=== PATIENT | male | born 1990 | race Caucasian/White ===

== ENCOUNTER 2024-12-08 02:34 | Day surgery (SDC) | payer OTHER ==
[~2024-12-08] VITALS: Ht 188 cm; Wt 93.8 kg
[2024-12-08] VITALS (234 sets, daily range): BP systolic 86–140; BP diastolic 35–92
[~2024-12-08 02:34] MED LIST: SODIUM CHLORIDE 0.9% 1,000 ML IV PRN
[2024-12-08] MEDS ORDERED: cloNIDine HCL 0.1 MG/TAB PO PRN ×2 (07:30→08:10)
[2024-12-08] MEDS ORDERED: SCOPOLAMINE 1.5 MG DIS TD PRN (07:30)
[2024-12-08] MEDS ORDERED: PANTOPRAZOLE SODIUM Sesquihydr 40 MG/TAB PO PRN (07:30)
[2024-12-08] MEDS ORDERED: diazePAM 5 MG/TAB PO PRN ×2 (07:30→08:30)
[2024-12-08] MEDS ORDERED: ALBUTEROL SULFATE 2.5 MG VIAL IN PRN (07:30)
[2024-12-08] MEDS ORDERED: LACTATED RINGER'S 1,000 ML IV PRN ×2 (07:30→08:25)
[2024-12-08] MEDS ORDERED: CYANOCOBALAMIN 500 MCG/TAB ( B12) PO PRN (07:30)
[2024-12-08] MEDS ORDERED: FAMOTIDINE 20 MG/TAB PO PRN (07:30)
[2024-12-08] MEDS ORDERED: ASCORBIC ACID 4,000 MG in SODIUM CHLORIDE 0.9% 1,000 ML IV SCH (08:00)
[2024-12-08] MEDS ORDERED: diazePAM 5 MG/TAB VT PRN (08:25)
[2024-12-08] MEDS ORDERED: ONDANSETRON HCl 4 MG/2 ML SDV IV PRN ×3 (08:25→19:00)
[2024-12-08] MEDS ORDERED: cloNIDine HYDROCHLORIDE 100 MCG/ML 10 ML INJ IV PRN (08:25)
[2024-12-08] MEDS ORDERED: SUCCINYLCHOLINE CHLORIDE 20 MG/ML 10ML VIAL IV PRN (08:25)
[2024-12-08] MEDS ORDERED: OCTREOTIDE ACETATE 100 MCG/VIAL SDV SC PRN (08:25)
[2024-12-08] MEDS ORDERED: MIDAZOLAM HCL 2 MG/2 ML VIAL IV PRN ×3 (08:25→15:15)
[2024-12-08] MEDS ORDERED: ROCURONIUM BROMIDE 10 MG/ML 5 ML VIAL IV PRN (08:25)
[2024-12-08] MEDS ORDERED: PROPOFOL 100 ML IV PRN (08:25)
[2024-12-08] MEDS ORDERED: STERILE WATER FOR IRRIGATION 1,000 ML BTL IR PRN (08:25)
[2024-12-08] MEDS ORDERED: PHENYLEPHRINE HCL 10 MG in DEXTROSE 5% 250 ML IV SCH (08:25)
[2024-12-08] MEDS ORDERED: LIDOCAINE HCL 1% (10MG/ML) 100 MG/10 ML MDV VT PRN ×2 (08:25)
[2024-12-08] MEDS ORDERED: NALTREXONE HCL 50 MG/TAB VT PRN (08:25)
[2024-12-08] MEDS ORDERED: MAGNESIUM SULFATE HEPTAHYDRATE 100 ML IV PRN (08:25)
[2024-12-08] MEDS ORDERED: cloNIDine HCL 0.1 MG/TAB VT PRN (08:25)
[2024-12-08] MEDS ORDERED: LIDOCAINE HCL 1% (10MG/ML) 100 MG/10 ML MDV IV PRN (08:25)
[2024-12-08] MEDS ORDERED: DiphenhydrAMINE HCL 50 MG/ML SDV IV PRN (08:25)
[2024-12-08] MEDS ORDERED: PROPOFOL 10 MG/ML 100ML VIAL IV PRN (08:25)
[2024-12-08] MEDS ORDERED: THIAMINE HCL 100 MG/ML 2ML VIAL IV PRN (08:25)
[2024-12-08] MEDS ORDERED: diazePAM 5 MG/TAB PO SCH (08:30)
[2024-12-08] MEDS ORDERED: SODIUM CHLORIDE 0.9% 1,000 ML IV PRN ×2 (08:30→15:15)
[2024-12-08] MEDS ORDERED: GABAPENTIN300 M2 PO (08:50)
[2024-12-08 08:51] LABS: BASO% 0.6 % (0-3); EOS% 5.4 % (0-8); HEMATOCRIT 43.7 % (39.0-50.0); HEMOGLOBIN 13.7 g/dl (14.0-18.0); LYMPH% 19.6 % (15-41); MEAN CELL VOLUME 86.2 fL CALC (80.0-100.0); MEAN CORPUSCULAR HGB CONC 31.4 g/dL CAL (32.0-36.0); MONO% 7.6 % (2-13); NEUT# 5.94 thou/uL (1.82-7.42); NEUT% 66.8 % (42-76); RED BLOOD COUNT 5.07 mill/uL (4.70-6.10); RED CELL DISTRI WIDTH 15.1 % (11.5-15.5)
[2024-12-08 09:02] LABS: ALBUMIN 4.5 g/dL (3.2-5.0); BILIRUBIN, TOTAL 0.6 mg/dL (0.2-1.3); CREATININE 1.1 mg/dL (0.7-1.3); POTASSIUM 3.4 mmol/l (3.5-5.1); TOTAL PROTEIN 8.2 g/dL (6.3-8.2)
[2024-12-08] MEDS ORDERED: POTASSIUM CHLORIDE 10 MEQ/50 ML BAG IV PRN (10:20)
[2024-12-08] MEDS ORDERED: DEXMEDETOMIDINE HCL IN SODIUM 100 ML IV SCH (11:40)
[2024-12-08] MEDS ORDERED: KLONOPIN2 MG PO (13:42)
[2024-12-08] MEDS ORDERED: CLONIDINE0.1 MG PO (13:42)
[2024-12-08] MEDS ORDERED: NALTREXONE50 MG PO (13:42)
[2024-12-08] MEDS ORDERED: clonazePAM 1 MG/TAB PO PRN (15:15)
[2024-12-08] MEDS ORDERED: KETOROLAC TROMETHAMINE 30 MG/ML SDV IV PRN (19:00)
[2024-12-08] MEDS ORDERED: PROMETHAZINE HCL 12.5 MG in SODIUM CHLORIDE 0.9% 50 ML IV PRN (19:00)
[2024-12-08] MEDS ORDERED: ACETAMINOPHEN 500 MG TAB PO PRN (19:00)
[2024-12-08] MEDS ORDERED: HALOPERIDOL LACTATE 5 MG/ML SDV IV PRN ×2 (19:00→20:55)
[2024-12-08] MEDS ORDERED: ACETAMINOPHEN 1,000 MG/100 ML VIAL IV PRN (19:00)
[2024-12-08] MEDS ORDERED: PROMETHAZINE HCL 25 MG in SODIUM CHLORIDE 0.9% 50 ML IV PRN (19:00)
[2024-12-08] MEDS ORDERED: PATIENT' OWN MED CONTROLLED 1 EA DOSE IV PRN (21:00)
[2024-12-08] MEDS ORDERED: cloNIDine HCL 0.1 MG/TAB PO SCH (23:00)
[2024-12-09 04:00] VITALS: BP 149/73
[2024-12-09] MEDS ORDERED: clonazePAM 1 MG/TAB PO PRN ×2 (04:00→08:00)
[2024-12-09] MEDS ORDERED: NALTREXONE HCL 50 MG/TAB PO SCH (04:00)
[2024-12-09] MEDS ORDERED: cloNIDine HCL 0.1 MG/TAB PO PRN (04:00)
[2024-12-09 04:12] VITALS: BP 149/73
[2024-12-09 06:05] LABS: ALBUMIN 4.3 g/dL (3.2-5.0); BILIRUBIN, TOTAL 0.7 mg/dL (0.2-1.3); CREATININE 0.9 mg/dL (0.7-1.3); MAGNESIUM 2.2 mg/dL (1.6-2.3); POTASSIUM 3.9 mmol/l (3.5-5.1); TOTAL PROTEIN 7.7 g/dL (6.3-8.2)
[2024-12-09 06:07] LABS: BASO% 0.2 % (0-3); HEMATOCRIT 46.9 % (39.0-50.0); IMMATURE GRANULOCYTES 0.3 % (0.0-5.0); LYMPH% 5.9 % (15-41); MEAN CELL VOLUME 85.9 fL CALC (80.0-100.0); MEAN CORPUSCULAR HGB 27.5 pG CALC (26.0-32.0); NEUT# 11.23 thou/uL (1.82-7.42); NEUT% 88.6 % (42-76); RED BLOOD COUNT 5.46 mill/uL (4.70-6.10); RED CELL DISTRI WIDTH 15.5 % (11.5-15.5)
[2024-12-09] MEDS ORDERED: PANTOPRAZOLE SODIUM Sesquihydr 40 MG/TAB PO SCH (08:00)
[2024-12-09] MEDS ORDERED: cloNIDine HCL 0.1 MG/TAB PO SCH ×2 (08:00→11:30)
[2024-12-09] MEDS ORDERED: ACETAMINOPHEN 325 MG/TAB PO SCH (08:00)
[2024-12-09] MEDS ORDERED: GABAPENTIN 300 MG/CAP PO SCH (08:30)
[2024-12-09] MEDS ORDERED: Cholecalciferol 2,000 UNIT/TAB PO PRN (09:00)
[2024-12-09] MEDS ORDERED: MAGNESIUM OXIDE 400 MG/TAB PO PRN (09:00)
[2024-12-09] MEDS ORDERED: ACETAMINOPHEN 500 MG TAB PO PRN (09:00)
[2024-12-09 19:19] VITALS: BP 143/76
[2024-12-09 22:37] VITALS: BP 136/80
[2024-12-10 04:01] VITALS: BP 155/86
[2024-12-10 04:47] LABS: BASO% 0.2 % (0-3); EOS% 0.1 % (0-8); HEMATOCRIT 45.4 % (39.0-50.0); HEMOGLOBIN 14.4 g/dl (14.0-18.0); IMMATURE GRANULOCYTES 0.2 % (0.0-5.0); LYMPH% 10.5 % (15-41); MEAN CELL VOLUME 86.3 fL CALC (80.0-100.0); MEAN CORPUSCULAR HGB 27.4 pG CALC (26.0-32.0); MEAN CORPUSCULAR HGB CONC 31.7 g/dL CAL (32.0-36.0); MONO% 9.4 % (2-13); NEUT# 8.9 thou/uL (1.82-7.42); NEUT% 79.6 % (42-76); RED BLOOD COUNT 5.26 mill/uL (4.70-6.10)
[2024-12-10 04:58] LABS: ALBUMIN 3.8 g/dL (3.2-5.0); BILIRUBIN, TOTAL 0.6 mg/dL (0.2-1.3); CREATININE 0.9 mg/dL (0.7-1.3); MAGNESIUM 2.3 mg/dL (1.6-2.3); POTASSIUM 3.6 mmol/l (3.5-5.1)
[2024-12-10 07:20] VITALS: BP 148/84
[2024-12-10] MEDS ORDERED: NALTREXONE HCL 50 MG/TAB PO SCH (07:30)
== END 2024-12-10 11:44 | disposition home or self-care (01) | DRG 897 ==
LOC: MS2 02:34 → ANR 02:34 → MS2 07:04 → ANR 09:00 → MS2 12-09 15:30 → ANR 12-10 11:44
PROVIDERS: ATTEND Anesthesiology Critical Care Medicine
DX: F11.20 Opioid dependence, uncomplicated (principal)
CPT/HCPCS: J0131; J1100; J1200; J1630; J2354; J2405; J2704; J3411; J3475; J3490